=== PATIENT | female | born 1985 | race Caucasian/White ===

== ENCOUNTER 2016-11-30 09:10 | Inpatient (IN) | payer BC ==
[2016-11-30] MEDS ORDERED: Citric Acid/Sodium Citrate Solution 30 ML Cup ONE (10:21)
[2016-11-30] MEDS ORDERED: Metoclopramide 10 MG/2 ML SDV ONE (10:21)
[2016-11-30] MEDS ORDERED: Bupivacaine 0.5% 30 ML SDV ONE (10:22)
[2016-11-30] MEDS ORDERED: ceFAZolin 2 GM in Premix Bag 1 BAG IV ONE (10:27)
[2016-11-30] MEDS ORDERED: Citric Acid/Sodium Citrate Solution 30 ML Cup PO ONE (10:27)
[2016-11-30] MEDS ORDERED: Sodium Chloride 0.9% 10 ML Syringe FLUSH PRN (10:27)
[2016-11-30] MEDS ORDERED: Metoclopramide 10 MG/2 ML SDV IVPUSH ONE (10:27)
[2016-11-30] MEDS ORDERED: Lactated Ringers 1,000 ML IV SCH (10:30)
[2016-11-30] MEDS ORDERED: fentaNYL 100 MCG/2 ML SDV IVPUSH PRN (11:46)
[2016-11-30] MEDS ORDERED: diphenhydrAMINE 50 MG/ML SDV IVPUSH PRN ×2 (11:46→13:51)
--- NOTE | 2016-11-30 11:51 | PCM.PREANE ---
Preanesthetic Assessment - Anesthesia/Transfusion/Family Hx Anesthesia History: Prior Anesthesia Reaction (nausea) Family History of Anesthesia Reaction: No Transfusion History: No Prior Transfusion(s) - Review of Systems General: No Symptoms Pulmonary: No Symptoms Cardiovascular: No Symptoms Gastrointestinal: No Symptoms Neurological: No Symptoms Other: Reports: None - Physical Assessment NPO Status Date: 11/30/16 NPO Status Time: 04:00 Pulse: 67 O2 Sat by Pulse Oximetry: 99 Respiratory Rate: 16 Blood Pressure: 122/80 Temperature: 36.9 C Vital Signs: Last Vital Signs Temp 36.6 C 11/30/16 11:39 Pulse 69 11/30/16 11:39 Resp 16 11/30/16 11:39 BP 109/69 11/30/16 11:39 Pulse Ox 99 11/30/16 11:39 Height: 1.7 m Weight: 86.183 kg ASA Class: 2 Mental Status: Alert & Oriented x3 Airway Class: Mallampati = 1 Dentition: Reports: Normal Dentition ROM/Head Extension: Full Lungs: Clear to Auscultation, Normal Respiratory Effort Cardiovascular: Regular Rate, Regular Rhythm - Lab Values: Laboratory Last Values WBC 9.32 K/mm3 (3.98-10.04) 11/30/16 10:20 RBC 3.89 M/mm3 (3.98-5.22) L 11/30/16 10:20 Hgb 11.4 gm/L (11.2-15.7) 11/30/16 10:20 Hct 35.2 % (34.1-44.9) 11/30/16 10:20 MCV 90.5 fl (79.4-94.8) 11/30/16 10:20 MCH 29.3 pg (25.6-32.2) 11/30/16 10:20 MCHC 32.4 g/dl (32.2-35.5) 11/30/16 10:20 RDW Std Deviation 44.9 fL (36.4-46.3) 11/30/16 10:20 Plt Count 142 K/mm3 (182-369) L 11/30/16 10:20 MPV 12.4 fl (9.4-12.3) H 11/30/16 10:20 Neut % (Auto) 74.2 % (34.0-71.1) H 11/30/16 10:20 Lymph % (Auto) 19.7 % (19.3-51.7) 11/30/16 10:20 Bulloch % (Auto) 4.9 % (4.7-12.5) 11/30/16 10:20 Eos % (Auto) 1.0 (0.7-5.8) 11/30/16 10:20 Baso % (Auto) 0.2 % (0.1-1.2) 11/30/16 10:20 Neut # (Auto) 6.91 K/mm3 (1.56-6.13) H 11/30/16 10:20 Lymph # (Auto) 1.84 K/mm3 (1.18-3.74) 11/30/16 10:20 Bulloch # (Auto) 0.46 K/mm3 (0.24-0.36) H 11/30/16 10:20 Eos # (Auto) 0.09 K/mm3 (0.04-0.36) 11/30/16 10:20 Baso # (Auto) 0.02 K/mm3 (0.01-0.08) 11/30/16 10:20 Membrane Rupture Positive H 11/30/16 09:41 Blood Type A POSITIVE 11/30/16 10:20 Gel Antibody Screen Negative 11/30/16 10:20 - Allergies Allergies/Adverse Reactions: Allergies Allergy/AdvReac Type Severity Reaction Status Date / Time No Known Allergies Allergy Verified 11/30/16 09:47 - Anesthesia Plan Pre-Op Medication Ordered: Antacids - Acknowledgements Anesthesia Type Planned: Spinal Pt an Appropriate Candidate for the Planned Anesthesia: Yes Alternatives and Risks of Anesthesia Discussed w Pt/Guardian: Yes Pt/Guardian Understands and Agrees with Anesthesia Plan: Yes PreAnesthesia Questionnaire Gastrointestinal History: Reports: GERD [employer] History: Reports: Other OB/BYN History: repeat - Past Surgical History HEENT Surgical History: Reports: Oral Surgery - SUBSTANCE USE Smoking Status *Q: Never Smoker Second Hand Smoke Exposure: No Recreational Drug Use History: No - CURRENT (IN HOUSE) MEDS Current Meds: Current Medications Diphenhydramine HCl (Benadryl) 25 mg IVPUSH Q6H PRN PRN Reason: Itching Fentanyl (Sublimaze) 50 mcg IVPUSH Q5M PRN PRN Reason: Pain Stop: 11/30/16 11:47 Lactated Ringer's (Ringers, Lactated) 1,000 mls @ 125 mls/hr IV ASDIRECTED [facility] Sodium Chloride (Saline Flush) 10 ml FLUSH ASDIRECTED PRN PRN Reason: Keep Vein Open Discontinued Medications Bupivacaine HCl (Marcaine 0.5%) Confirm Administered Dose 30 ml .ROUTE .STK-MED ONE Stop: 11/30/16 10:23 Citric Acid/Sodium Citrate (Bicitra Solution) Confirm Administered Dose 30 ml .ROUTE .STK-MED ONE Stop: 11/30/16 10:22 Citric Acid/Sodium Citrate (Bicitra Solution) 30 ml PO ONETIME ONE Stop: 11/30/16 10:28 Last Admin: 11/30/16 10:30 Dose: 30 ml Cefazolin Sodium/Dextrose 2 gm (/ Premix) 50 mls @ 100 mls/hr IV ONETIME ONE Stop: 11/30/16 10:56 Metoclopramide HCl (Reglan) Confirm Administered Dose 10 mg .ROUTE .STK-MED ONE Stop: 11/30/16 10:22 Metoclopramide HCl (Reglan) 10 mg IVPUSH ONETIME ONE Stop: 11/30/16 10:28 Last Admin: 11/30/16 10:31 Dose: 10 mg
--- NOTE | 2016-11-30 11:52 | PCM.POSTAN ---
POST ANESTHESIA ASSESSMENT - MENTAL STATUS Mental Status: Alert, Oriented - VITAL SIGNS Pulse Rate: 69 SaO2: 98 Resp Rate: 16 Blood Pressure: 109/69 Temperature: 36.6 C - RESPIRATORY Respiratory Status: Respiratory Rate WNL, Airway Patent, O2 Saturation Stable - CARDIOVASCULAR CV Status: Pulse Rate WNL, Blood Pressure Stable - GASTROINTESTINAL GI Status: No Symptoms - PAIN Pain Score: 0 - POST OP HYDRATION Hydration Status: Adequate & Stable - OBSERVATIONS Free Text/Narrative:: no known anesthesia reactions
[2016-11-30] MEDS ORDERED: Lanolin 100% Cream 7 GM Tube TOP PRN (13:51)
[2016-11-30] MEDS ORDERED: Naloxone 0.4 MG/ML SDV IVPUSH PRN (13:51)
[2016-11-30] MEDS ORDERED: Dextrose 5%-Lactated Ringers 1,000 ML IV SCH (13:51)
[2016-11-30] MEDS ORDERED: Docusate Sodium 100 MG Cap PO PRN (13:51)
[2016-11-30] MEDS ORDERED: Ondansetron 4 MG/2 ML SDV IV PRN (13:51)
[2016-11-30] MEDS ORDERED: ePHEDrine 50 MG/ML SDV IVPUSH PRN (13:51)
[2016-11-30] MEDS: Simethicone 80 MG Tab.Chew PO SCH ×4 (15:39→23:38)
[2016-11-30] MEDS: Ketorolac 30 MG/ML SDV IVPUSH SCH ×3 (17:56→23:39)
--- NOTE | 2016-12-01 06:11 | PCM.PNPP ---
- General Info Date of Service: 12/01/16 Functional Status: Reports: Pain Controlled - Review of Systems General: Reports: No Symptoms HEENT: Reports: No Symptoms Pulmonary: Reports: No Symptoms Cardiovascular: Reports: No Symptoms Gastrointestinal: Reports: No Symptoms Genitourinary: Reports: No Symptoms Musculoskeletal: Reports: No Symptoms Skin: Reports: No Symptoms Neurological: Reports: No Symptoms Psychiatric: Reports: No Symptoms - General Info Date of Service: 12/01/16 - Patient Data Vital Signs - Most Recent: Last Vital Signs Temp 36.3 C 11/30/16 21:55 Pulse 74 12/01/16 03:31 Resp 15 12/01/16 00:00 BP 115/68 12/01/16 03:31 Pulse Ox 98 12/01/16 03:31 Weight - Most Recent: 86.183 kg I&O - Last 24 Hours: Intake & Output 11/30/16 11/30/16 12/01/16 14:59 22:59 06:59 Intake Total 200 Output Total 916 436 6899 Balance -25 -750 -1500 Lab Results - Last 24 Hours: Laboratory Results - last 24 hr 11/30/16 11/30/16 11/30/16 Range/Units 09:41 10:20 10:20 WBC 9.32 (3.98-10.04) K/mm3 RBC 3.89 L (3.98-5.22) M/mm3 Hgb 11.4 (11.2-15.7) gm/L Hct 35.2 (34.1-44.9) % MCV 90.5 (79.4-94.8) fl MCH 29.3 (25.6-32.2) pg MCHC 32.4 (32.2-35.5) g/dl RDW Std Deviation 44.9 (36.4-46.3) fL Plt Count 142 L (182-369) K/mm3 MPV 12.4 H (9.4-12.3) fl Neut % (Auto) 74.2 H (34.0-71.1) % Lymph % (Auto) 19.7 (19.3-51.7) % Martin % (Auto) 4.9 (4.7-12.5) % Eos % (Auto) 1.0 (0.7-5.8) Baso % (Auto) 0.2 (0.1-1.2) % Neut # (Auto) 6.91 H (1.56-6.13) K/mm3 Lymph # (Auto) 1.84 (1.18-3.74) K/mm3 Martin # (Auto) 0.46 H (0.24-0.36) K/mm3 Eos # (Auto) 0.09 (0.04-0.36) K/mm3 Baso # (Auto) 0.02 (0.01-0.08) K/mm3 Membrane Rupture Positive H Blood Type A POSITIVE Gel Antibody Screen Negative Med Orders - Current: Current Medications Diphenhydramine HCl (Benadryl) 25 mg IVPUSH Q6H PRN PRN Reason: Itching Last Admin: 11/30/16 12:25 Dose: 25 mg Diphenhydramine HCl (Benadryl) 25 mg IVPUSH Q6H PRN PRN Reason: Itching or Nausea Docusate Sodium (Colace) 100 mg PO Q12H PRN PRN Reason: Constipation Emollient Ointment (Lansinoh Hpa) 0 gm TOP ASDIRECTED PRN PRN Reason: Sore Nipples Last Admin: 11/30/16 23:40 Dose: 7 gm Ephedrine Sulfate (Ephedrine Sulfate) 5 mg IVPUSH SEECOMMENT PRN PRN Reason: Other Ibuprofen (Motrin) 600 mg PO Q6H PRN PRN Reason: mild pain or fever Naloxone HCl (Narcan) 0.1 mg IVPUSH SEECOMMENT PRN PRN Reason: Respiratory Depression Ondansetron HCl (Zofran) 4 mg IV Q8H PRN PRN Reason: Nausea/Vomiting Oxycodone/Acetaminophen (Percocet 325-5 Mg) 2 tab PO Q4H PRN PRN Reason: Pain (moderate 4-6) Simethicone (Simethicone) 80 mg PO PCBED [facility] Last Admin: 11/30/16 23:38 Dose: 80 mg Discontinued Medications Bupivacaine HCl (Marcaine 0.5%) Confirm Administered Dose 30 ml .ROUTE .STK-MED ONE Stop: 11/30/16 10:23 Last Admin: 11/30/16 11:00 Dose: 30 ml Citric Acid/Sodium Citrate (Bicitra Solution) Confirm Administered Dose 30 ml .ROUTE .STK-MED ONE Stop: 11/30/16 10:22 Last Admin: 11/30/16 20:00 Dose: Not Given Citric Acid/Sodium Citrate (Bicitra Solution) 30 ml PO ONETIME ONE Stop: 11/30/16 10:28 Last Admin: 11/30/16 10:30 Dose: 30 ml Fentanyl (Sublimaze) 50 mcg IVPUSH Q5M PRN PRN Reason: Pain Stop: 11/30/16 11:47 Cefazolin Sodium/Dextrose 2 gm (/ Premix) 50 mls @ 100 mls/hr IV ONETIME ONE Stop: 11/30/16 10:56 Last Admin: 11/30/16 20:01 Dose: Not Given Lactated Ringer's (Ringers, Lactated) 1,000 mls @ 125 mls/hr IV ASDIRECTED [facility] Dextrose/Lactated Ringer's (Dextrose 5%-Lactated Ringers) 1,000 mls @ 125 mls/ hr IV ASDIRECTED [facility] Stop: 11/30/16 21:50 Last Admin: 11/30/16 15:39 Dose: 125 mls/hr Ketorolac Tromethamine (Toradol) 30 mg IVPUSH Q6H [facility] Stop: 12/01/16 02:01 Last Admin: 11/30/16 22:18 Dose: Not Given Ketorolac Tromethamine (Toradol) 30 mg IVPUSH Q6H [facility] Stop: 12/01/16 06:01 Last Admin: 11/30/16 23:39 Dose: 30 mg Metoclopramide HCl (Reglan) Confirm Administered Dose 10 mg .ROUTE .STK-MED ONE Stop: 11/30/16 10:22 Last Admin: 11/30/16 20:00 Dose: Not Given Metoclopramide HCl (Reglan) 10 mg IVPUSH ONETIME ONE Stop: 11/30/16 10:28 Last Admin: 11/30/16 10:31 Dose: 10 mg Sodium Chloride (Saline Flush) 10 ml FLUSH ASDIRECTED PRN PRN Reason: Keep Vein Open - Infant Interaction Infant Disposition, : at Bedside Support Person: Significant Other - Recovery Exam Fundal Tone: Firm Fundal Level: At Umbilicus Fundal Placement: Midline Lochia Amount: Small Lochia Color: Rubra/Red Perineum Description: Intact, Minimal Bruising/Swelling Episiotomy/Laceration: None Bladder Status: Indwelling Catheter in Place Urinary Elimination: Indwelling Catheter - Exam General: Alert, Oriented HEENT: Pupils Equal Neck: Supple Lungs: Clear to Auscultation, Normal Respiratory Effort Cardiovascular: Regular Rate, Regular Rhythm GI/Abdominal Exam: Normal Bowel Sounds, Soft, Non-Tender, No Organomegaly, No Distention, No Abnormal Bruit, No Mass, Pelvis Stable Extremities: Normal Inspection, Normal Range of Motion, Non-Tender, No Pedal Edema, Normal Capillary Refill Skin: Warm, Dry, Intact Wound/Incisions: Dressing Dry and Intact Neurological: No New Focal Deficit Psy/Mental Status: Alert, Normal Affect, Normal Mood - Problem List Review Problem List Initiated/Reviewed/Updated: Yes - My Orders Last 24 Hours: My Active Orders 11/30/16 10:27 Heart Tones [RC] PER UNIT ROUTINE Vital Signs [RC] PFP 11/30/16 13:51 Communication Order [RC] PER UNIT ROUTINE Communication Order [RC] PER UNIT ROUTINE Notify Provider Intake and Out [RC] ASDIRECTED Vital Signs [RC] Q4H Acetaminophen/oxyCODONE [Percocet 325-5 MG] 2 tab PO Q4H PRN Docusate Sodium [Colace] 100 mg PO Q12H PRN Lanolin [Lansinoh HPA] See Dose Instructions TOP ASDIRECTED PRN Naloxone [Narcan] 0.1 mg IVPUSH SEECOMMENT PRN Ondansetron [Zofran] 4 mg IV Q8H PRN Simethicone 80 mg PO PCBED diphenhydrAMINE [Benadryl] 25 mg IVPUSH Q6H PRN ePHEDrine [ePHEDrine Sulfate] 5 mg IVPUSH SEECOMMENT PRN Assess Lochia [WOMSER] Per Unit Routine Assess Uterine Involution [WOMSER] Per Unit Routine Medication Administration Instruction [OM.PC] Routine 11/30/16 Lunch Regular Diet [DIET] 12/01/16 05:11 CBC WITH AUTO DIFF [HEME] AM 12/01/16 08:00 Ibuprofen [Motrin] 600 mg PO Q6H PRN 12/01/16 11:36 Urinary Catheter Removal [RC] Per Unit Routine - Assessment Assessment:: POD1 Doing excellent. Moving well. No complaints. Terry to come out. D/C IV May shower. Likely d/c tomorrow
[2016-12-01] MEDS: Ketorolac 30 MG/ML SDV IVPUSH SCH (06:12)
[2016-12-01] MEDS: Acetaminophen/oxyCODONE 325-5 MG Tab PO PRN ×3 (07:53→20:18)
[2016-12-01] MEDS: Simethicone 80 MG Tab.Chew PO SCH ×5 (09:00→23:43)
--- NOTE | 2016-12-01 09:43 | PCM48HPAN ---
Post Anesthesia Note - EVALUATION WITHIN 48HRS OF ANESTHETIC Vital Signs in Normal Range: Yes Patient Participated in Evaluation: Yes Respiratory Function Stable: Yes Airway Patent: Yes Cardiovascular Function Stable: Yes Hydration Status Stable: Yes Pain Control Satisfactory: Yes Nausea and Vomiting Control Satisfactory: Yes Mental Status Recovered: Yes
[2016-12-01] MEDS: Ibuprofen 600 MG Tab PO PRN ×2 (12:50→19:32)
[2016-12-02] MEDS: Acetaminophen/oxyCODONE 325-5 MG Tab PO PRN ×2 (04:31→10:19)
[2016-12-02 04:40] VITALS: BP 106/81
[2016-12-02] MEDS: Simethicone 80 MG Tab.Chew PO SCH (08:16)
--- NOTE | 2016-12-02 10:41 | PCM.DCSUM1 ---
Discharge Summary - Discharge Data Discharge Date: 12/02/16 Discharge Disposition: Home, Self-Care 01 Condition: Good - Patient Summary/Data Hospital Course: Uncomplicated course. - Patient Instructions Diet: Usual Diet as Tolerated Activity: No Strenuous Activities Activity, Other: pelvic rest Driving: Do Not Drive Notify Provider of: Fever, Increased Pain, Swelling and Redness, Drainage, Nausea and/or Vomiting - Discharge Plan Patient Handouts: Delivery, Care After, Home Care Instructions for Mom , Breast Pumping Tips, [id number] Referrals: Francy Silva MD [Physician] - (Follow up in 2 weeks for incision check. Call to schedule appointment. ) - Discharge Summary/Plan Comment DC Time >30 min.: No - General Info Date of Service: 12/02/16 - Review of Systems General: Reports: No Symptoms HEENT: Reports: No Symptoms Pulmonary: Reports: No Symptoms Cardiovascular: Reports: No Symptoms Gastrointestinal: Reports: No Symptoms Genitourinary: Reports: No Symptoms Musculoskeletal: Reports: No Symptoms Skin: Reports: No Symptoms Neurological: Reports: No Symptoms Psychiatric: Reports: No Symptoms - Patient Data Vitals - Most Recent: Last Vital Signs Temp 36.2 C 12/02/16 04:31 Pulse 73 12/02/16 04:31 Resp 15 12/02/16 04:31 BP 106/81 12/02/16 04:31 Pulse Ox 98 12/02/16 04:31 Weight - Most Recent: 86.183 kg I&O - Last 24 hours: Intake & Output 12/01/16 12/02/16 12/02/16 22:59 06:59 14:59 Intake Total 480 240 Balance 480 240 Med Orders - Current: Current Medications Diphenhydramine HCl (Benadryl) 25 mg IVPUSH Q6H PRN PRN Reason: Itching Last Admin: 11/30/16 12:25 Dose: 25 mg Diphenhydramine HCl (Benadryl) 25 mg IVPUSH Q6H PRN PRN Reason: Itching or Nausea Docusate Sodium (Colace) 100 mg PO Q12H PRN PRN Reason: Constipation Emollient Ointment (Lansinoh Hpa) 0 gm TOP ASDIRECTED PRN PRN Reason: Sore Nipples Last Admin: 11/30/16 23:40 Dose: 7 gm Ephedrine Sulfate (Ephedrine Sulfate) 5 mg IVPUSH SEECOMMENT PRN PRN Reason: Other Ibuprofen (Motrin) 600 mg PO Q6H PRN PRN Reason: mild pain or fever Last Admin: 12/01/16 19:32 Dose: 600 mg Naloxone HCl (Narcan) 0.1 mg IVPUSH SEECOMMENT PRN PRN Reason: Respiratory Depression Ondansetron HCl (Zofran) 4 mg IV Q8H PRN PRN Reason: Nausea/Vomiting Oxycodone/Acetaminophen (Percocet 325-5 Mg) 2 tab PO Q4H PRN PRN Reason: Pain (moderate 4-6) Last Admin: 12/02/16 10:19 Dose: 2 tab Simethicone (Simethicone) 80 mg PO PCBED [facility] Last Admin: 12/02/16 08:16 Dose: 80 mg Discontinued Medications Bupivacaine HCl (Marcaine 0.5%) Confirm Administered Dose 30 ml .ROUTE .STK-MED ONE Stop: 11/30/16 10:23 Last Admin: 11/30/16 11:00 Dose: 30 ml Citric Acid/Sodium Citrate (Bicitra Solution) Confirm Administered Dose 30 ml .ROUTE .STK-MED ONE Stop: 11/30/16 10:22 Last Admin: 11/30/16 20:00 Dose: Not Given Citric Acid/Sodium Citrate (Bicitra Solution) 30 ml PO ONETIME ONE Stop: 11/30/16 10:28 Last Admin: 11/30/16 10:30 Dose: 30 ml Fentanyl (Sublimaze) 50 mcg IVPUSH Q5M PRN PRN Reason: Pain Stop: 11/30/16 11:47 Cefazolin Sodium/Dextrose 2 gm (/ Premix) 50 mls @ 100 mls/hr IV ONETIME ONE Stop: 11/30/16 10:56 Last Admin: 11/30/16 20:01 Dose: Not Given Lactated Ringer's (Ringers, Lactated) 1,000 mls @ 125 mls/hr IV ASDIRECTED [facility] Dextrose/Lactated Ringer's (Dextrose 5%-Lactated Ringers) 1,000 mls @ 125 mls/ hr IV ASDIRECTED [facility] Stop: 11/30/16 21:50 Last Admin: 11/30/16 15:39 Dose: 125 mls/hr Ketorolac Tromethamine (Toradol) 30 mg IVPUSH Q6H [facility] Stop: 12/01/16 02:01 Last Admin: 11/30/16 22:18 Dose: Not Given Ketorolac Tromethamine (Toradol) 30 mg IVPUSH Q6H [facility] Stop: 12/01/16 06:01 Last Admin: 12/01/16 06:12 Dose: 30 mg Metoclopramide HCl (Reglan) Confirm Administered Dose 10 mg .ROUTE .STK-MED ONE Stop: 11/30/16 10:22 Last Admin: 11/30/16 20:00 Dose: Not Given Metoclopramide HCl (Reglan) 10 mg IVPUSH ONETIME ONE Stop: 11/30/16 10:28 Last Admin: 11/30/16 10:31 Dose: 10 mg Sodium Chloride (Saline Flush) 10 ml FLUSH ASDIRECTED PRN PRN Reason: Keep Vein Open - Exam General: Reports: Alert, Oriented HEENT: Reports: Pupils Equal, Pupils Reactive, EOMI, Mucous Membr. Moist/[place] Neck: Reports: Supple Lungs: Reports: Clear to Auscultation, Normal Respiratory Effort Cardiovascular: Reports: Regular Rate, Regular Rhythm GI/Abdominal Exam: Normal Bowel Sounds, Soft, Non-Tender, No Organomegaly, No Distention, No Abnormal Bruit, No Mass, Pelvis Stable, Other (incision excellent ) Back Exam: Reports: Normal Inspection, Full Range of Motion Extremities: Normal Inspection, Normal Range of Motion, Non-Tender, No Pedal Edema, Normal Capillary Refill Skin: Reports: Warm, Dry, Intact Wound/Incisions: Reports: Healing Well Neurological: Reports: No New Focal Deficit Psy/Mental Status: Reports: Alert, Normal Affect, Normal Mood *Q Meaningful Use (DIS) - VTE *Q VTE Criteria *Q: - Stroke *Q Stroke Criteria *Q: - AMI *Q AMI Criteria *Q:
--- NOTE | 2016-12-18 00:43 | PCM.OPNOTE ---
- General Post-Op/Procedure Note Date of Surgery/Procedure: 12/02/16 Pre Op Diagnosis: prior , desires repeat Post-Op Diagnosis: Same Anesthesia Technique: Spinal Primary Surgeon: Francy Silva Director Career: Suresh Landeros Reason Director Career Was Necessary: Patient safety Complications: none Condition: Good Free Text/Narrative:: The patient was taken to the operating room where epidural anesthesia was dosed to surgical levels without difficulty. The patient was prepped and draped in the usual sterile fashion in the dorsal supine position with a leftward tilt. A Pfannenstiel skin incision was made with the scalpel and carried through to the underlying layer of fascia. The fascia was incised in the midline and extended laterally using Montoya scissors. Jessica clamps were used to elevate the superior aspect of the fascial incision, which was elevated, and the underlying rectus muscles were dissected off bluntly and using Montoya scissors. Attention was then turned to the inferior aspect of the fascial incision, which in similar fashion was grasped with Jessica clamps, elevated, and the underlying rectus muscles were dissected off bluntly and using the montoya. The rectus muscles were dissected in the midline. The peritoneum was entered bluntly; this incision was extended superiorly and inferiorly with good visualization of the bladder. The bladder blade was inserted. The vesicouterine peritoneum was identified and entered sharply using Metzenbaum scissors. This incision was extended laterally and the bladder flap was created digitally. The bladder blade was reinserted. The lower uterine segment was incised in a transverse fashion using the scalpel and with digital traction. Clear fluid was noted. The was subsequently delivered by flexing the head to the incision. Body and shoulders followed without difficulty. The cord was clamped and cut. The was subsequently handed to the awaiting television cabinet finisher whose presence had been requested.. The placenta was delivered spontaneously intact with a three-vessel cord noted. The uterus was exteriorized and cleared of all clots and debris. The uterine incision was repaired in 2 layers using 0 monocryl. Hemostasis was visualized. Hemostasis was visualized bilaterally. The uterus was returned to the abdomen. The uterine incision was reexamined and it was noted to be hemostatic. The pelvis was copiously irrigated. The fascia was closed with 1 PDS suture, and the skin was closed with 3-0 monocryl. Sponge, lap, and instrument counts were correct x2. The patient was stable at the completion of the procedure and was subsequently transferred to the recovery room in stable condition.
== END 2016-12-02 11:29 | disposition home or self-care (01) | DRG 540 ==
LOC: JD.OBCHECK 09:10 → JD.OB 09:18 → JD.OBCHECK 10:15 → JD.OB 10:16
PROVIDERS: ADMIT Obstetrics & Gynecology; ATTEND Obstetrics & Gynecology
PROC: 10D00Z1 Extraction of Products of Conception, Low, Open Approach (ICD-10-PCS; principal; 2016-11-30)
DX: O34.211 Maternal care for low transverse scar from previous cesarean delivery (principal); N85.8 Other specified noninflammatory disorders of uterus; Z3A.40 40 weeks gestation of pregnancy; Z37.0 Single live birth
CPT/HCPCS: 01961; 36415; 84112; 85025; 86850; 86900; 86901; 94762; A9270-GY; J1200; J1885; J2765; J7042